=== PATIENT | male | born 1970 | race Two or more races ===

== ENCOUNTER → 2020-05-30 | Outpatient (CLI) | payer BC ==
[2020-05-30 06:50] LABS: BASOPHILS % 0.9 % (0.0-2.0); EOSINOPHILS % 2.7 % (0.0-5.0); HEMATOCRIT. 44.4 % (42.0-52.0); HEMOGLOBIN. 15.5 g/dL (14.0-18.0); LYMPHOCYTES % 37.2 % (20.0-50.0); MEAN CORPUSCULAR HEMOGLOBIN 32.3 pg (28.0-32.0); MEAN CORPUSCULAR VOLUME 92.4 fL (80.0-94.0); MEAN PLATELET VOLUME 10.1 fl (7.4-10.4); MONOCYTES % 6.8 % (2.0-8.0); NEUTROPHILS % 52.4 % (40.0-76.0); PLATELET 182 x1000/uL (130-400); RED BLOOD CELL COUNT 4.81 mill/uL (4.7-6.1); RED CELL DISTRIBUTION WIDTH 14.1 % (11.6-14.6)
[2020-05-30 07:07] LABS: CHLORIDE 105 mEq/L (98-107)
== END | disposition home or self-care (01) ==
LOC: LAB 06:08
PROVIDERS: ATTEND Internal Medicine
DX: I10 Essential (primary) hypertension (principal)
CPT/HCPCS: 36415; 80053; 83036; 84153; 85025; G0103

== ENCOUNTER → 2020-09-01 | Outpatient (CLI) | payer BC | END | disposition home or self-care (01) | LOC: MRI 07:23 | PROVIDERS: ATTEND Internal Medicine | DX: M51.27 Other intervertebral disc displacement, lumbosacral region (principal); M48.07 Spinal stenosis, lumbosacral region | CPT/HCPCS: 72148 ==

== ENCOUNTER 2022-02-07 13:05 | Inpatient (IN) | payer BC ==
[~2022-02-07] VITALS: Ht 175.3 cm; Wt 83.9 kg
[2022-02-07] MEDS ORDERED: IOHEXOL-350 100 ML BOTTLE ONE (13:48)
[2022-02-07 14:15] LABS: CLARITY URINE CLEAR (CLEAR); COLOR URINE YELLOW (YELLOW); KETONES URINE NEGATIVE (NEGATIVE); LEUKOCYTE ESTERASE URINE NEGATIVE (NEGATIVE); NITRITE URINE NEGATIVE (NEGATIVE); OCCULT BLOOD URINE NEGATIVE (NEGATIVE); PROTEIN URINE NEGATIVE (NEGATIVE); SPECIFIC GRAVITY URINE 1.039 (1.005-1.030); UROBILINOGEN URINE 0.2 E.U./dL (0.2-1.0)
[2022-02-07 14:21] LABS: BASOPHILS % 0.3 % (0.0-2.0); EOSINOPHILS % 0.5 % (0.0-5.0); HEMATOCRIT. 27.6 % (42.0-52.0); HEMOGLOBIN. 9.7 g/dL (14.0-18.0); LYMPHOCYTES % 16.2 % (20.0-50.0); MEAN CORPUSCULAR HEMOGLOBIN 31.9 pg (28.0-32.0); MEAN PLATELET VOLUME 9.8 fl (7.4-10.4); MONOCYTES % 5.5 % (2.0-8.0); NEUTROPHILS % 77.5 % (40.0-76.0); PLATELET 117 x1000/uL (130-400); RED BLOOD CELL COUNT 3.03 mill/uL (4.7-6.1); RED CELL DISTRIBUTION WIDTH 14.3 % (11.6-14.6)
[2022-02-07 14:26] LABS: CHLORIDE 101 mEq/L (98-107)
[2022-02-07] MEDS ORDERED: CLOPIDOGREL 75MG TABLET PO ONE (14:30)
[2022-02-07] MEDS ORDERED: ASPIRIN 325MG EC TABLET PO ONE (14:30)
[2022-02-07 14:37] LABS: ETHANOL BLOOD 116 mg/dL
[2022-02-07 14:39] LABS: *AMPHETAMINES SCREEN URINE NEGATIVE (NEGATIVE); *BARBITURATES SCREEN URINE NEGATIVE (NEGATIVE); *BENZODIAZEPINES SCREEN URINE NEGATIVE (NEGATIVE); *COCAINE SCREEN URINE NEGATIVE (NEGATIVE); CANNABINOID URINE SCREEN NEGATIVE (NEGATIVE); METHADONE URINE SCREEN NEGATIVE (NEGATIVE); OPIATES URINE SCREEN NEGATIVE (NEGATIVE); PHENCYCLIDINE URINE SCREEN NEGATIVE (NEGATIVE)
[2022-02-07] MEDS ORDERED: DEXTROSE 50% WATER 50ML SYRINGE IV PRN (16:45)
[2022-02-07] MEDS ORDERED: ONDANSETRON HCL 4MG/2ML INJ IV PRN (16:45)
[2022-02-07 19:07] VITALS: BP 151/90
[2022-02-07 20:00] VITALS: BP 158/91
[2022-02-07] MEDS: ATORVASTATIN CALCIUM 40MG TABLET PO SCH (20:11)
[2022-02-07] MEDS: ACETAMINOPHEN 325MG TABLET PO PRN (20:17)
[2022-02-07] MEDS: BLOOD SUGAR DIAGNOSTIC STRIP TEST SCH (20:20)
[2022-02-07] MEDS: INSULIN LISPRO 100 UNITS/ML SUBCUT SCH (20:20)
[2022-02-08] VITALS: BP 145/82
[2022-02-08 04:00] VITALS: BP 148/96
[2022-02-08] MEDS: BLOOD SUGAR DIAGNOSTIC STRIP TEST SCH ×4 (06:09→21:14)
[2022-02-08] MEDS: INSULIN LISPRO 100 UNITS/ML SUBCUT SCH ×4 (06:10→21:18)
[2022-02-08 08:30] VITALS: BP 152/99
[2022-02-08] MEDS: FOLIC ACID 1MG TABLET PO SCH (08:59)
[2022-02-08] MEDS: MULTIVITAMINS,THER W-MINERALS TABLET PO SCH (08:59)
[2022-02-08] MEDS: ASPIRIN 81MG TABLET PO SCH (08:59)
[2022-02-08] MEDS: ACETAMINOPHEN 325MG TABLET PO PRN ×3 (08:59→22:39)
[2022-02-08] MEDS: THIAMINE HCL 100MG TABLET PO SCH (08:59)
[2022-02-08] MEDS: ENOXAPARIN 40MG/0.4ML SYR SUBCUT SCH (09:00)
[2022-02-08 12:30] VITALS: BP 174/92
[2022-02-08 16:26] VITALS: BP 146/92
[2022-02-08] MEDS: CLOPIDOGREL 75MG TABLET PO SCH (17:34)
[2022-02-08 20:00] VITALS: BP 149/87
[2022-02-08] MEDS: ATORVASTATIN CALCIUM 40MG TABLET PO SCH (21:14)
[2022-02-09] VITALS: BP 137/71
[2022-02-09 04:00] VITALS: BP 122/77
[2022-02-09] MEDS: BLOOD SUGAR DIAGNOSTIC STRIP TEST SCH ×4 (05:34→20:00)
[2022-02-09] MEDS: ACETAMINOPHEN 325MG TABLET PO PRN ×2 (05:35→19:46)
[2022-02-09] MEDS: INSULIN LISPRO 100 UNITS/ML SUBCUT SCH ×4 (06:34→20:01)
[2022-02-09 08:00] VITALS: BP 116/60
[2022-02-09] MEDS: ASPIRIN 81MG TABLET PO SCH (08:38)
[2022-02-09] MEDS: CLOPIDOGREL 75MG TABLET PO SCH (08:38)
[2022-02-09] MEDS: THIAMINE HCL 100MG TABLET PO SCH (08:38)
[2022-02-09] MEDS: ENOXAPARIN 40MG/0.4ML SYR SUBCUT SCH (08:38)
[2022-02-09] MEDS: MULTIVITAMINS,THER W-MINERALS TABLET PO SCH (08:38)
[2022-02-09] MEDS: FOLIC ACID 1MG TABLET PO SCH (08:38)
[2022-02-09] MEDS ORDERED: IBUPROFEN 100MG/5ML UDC PO PRN (09:00)
[2022-02-09] MEDS ORDERED: NICOTINE 14MG PATCH TD SCH (09:00)
[2022-02-09 12:00] VITALS: BP 118/93
[2022-02-09 16:00] VITALS: BP 140/81
[2022-02-09 20:00] VITALS: BP 132/78
[2022-02-09] MEDS: ATORVASTATIN CALCIUM 40MG TABLET PO SCH (20:00)
== END 2022-02-09 21:35 | DRG 65 ==
LOC: ER 13:41 → 8WST 14:30 → ENRESERV 15:39
PROVIDERS: ADMIT Internal Medicine Nephrology; ATTEND Internal Medicine
PROC: 4A10X4Z Monitoring of Central Nervous Electrical Activity, External Approach (ICD-10-PCS; principal; 2022-02-09)
DX: I63.9 Cerebral infarction, unspecified (principal); E87.1 Hypo-osmolality and hyponatremia; G81.94 Hemiplegia, unspecified affecting left nondominant side; I10 Essential (primary) hypertension; D64.9 Anemia, unspecified; E11.65 Type 2 diabetes mellitus with hyperglycemia; F10.129 Alcohol abuse with intoxication, unspecified; R29.810 Facial weakness; Y90.9 Presence of alcohol in blood, level not specified; F17.210 Nicotine dependence, cigarettes, uncomplicated; E78.00 Pure hypercholesterolemia, unspecified; Z86.73 Personal history of transient ischemic attack (TIA), and cerebral infarction without residual deficits
CPT/HCPCS: 36415; 70496; 70498; 70551; 71045; 80053; 80061; 80305; 80320; 81003; 82962; 83036; 84484; 85025; 93005; 93306; 95816; 97112; 97162; 97166; 99291; J1650; J1815; Q9967; G0480

== ENCOUNTER 2022-02-09 21:33 | Inpatient (IN) | payer BC ==
[~2022-02-09] VITALS: Ht 175.3 cm; Wt 83.7 kg
[2022-02-09 21:33] VITALS: BP 141/85
[2022-02-09] MEDS ORDERED: ONDANSETRON HCL 4MG/2ML INJ IV PRN (23:00)
[2022-02-09] MEDS ORDERED: DEXTROSE 50% WATER 50ML SYRINGE IV PRN (23:00)
[2022-02-10] MEDS: BLOOD SUGAR DIAGNOSTIC STRIP TEST SCH ×4 (05:50→20:43)
[2022-02-10 08:00] VITALS: BP 124/89
[2022-02-10] MEDS: NICOTINE 14MG PATCH TD SCH ×2 (09:00→12:36)
[2022-02-10] MEDS: CLOPIDOGREL 75MG TABLET PO SCH (09:33)
[2022-02-10] MEDS: ASPIRIN 81MG TABLET PO SCH (09:33)
[2022-02-10] MEDS: FOLIC ACID 1MG TABLET PO SCH (09:33)
[2022-02-10] MEDS: THIAMINE HCL 100MG TABLET PO SCH (09:33)
[2022-02-10] MEDS: MULTIVITAMINS,THER W-MINERALS TABLET PO SCH (09:33)
[2022-02-10] MEDS: ENOXAPARIN 40MG/0.4ML SYR SUBCUT SCH (09:37)
[2022-02-10] MEDS: INSULIN LISPRO 100 UNITS/ML SUBCUT SCH ×4 (09:44→20:50)
[2022-02-10] MEDS: ACETAMINOPHEN 325MG TABLET PO PRN (14:53)
[2022-02-10 20:00] VITALS: BP 148/67
[2022-02-10] MEDS: ATORVASTATIN CALCIUM 40MG TABLET PO SCH (20:40)
[2022-02-11] MEDS: BLOOD SUGAR DIAGNOSTIC STRIP TEST SCH ×4 (06:46→21:09)
[2022-02-11] MEDS: INSULIN LISPRO 100 UNITS/ML SUBCUT SCH ×4 (06:59→21:17)
[2022-02-11 08:00] VITALS: BP 126/88
[2022-02-11] MEDS: ENOXAPARIN 40MG/0.4ML SYR SUBCUT SCH (09:00)
[2022-02-11] MEDS: FOLIC ACID 1MG TABLET PO SCH (09:15)
[2022-02-11] MEDS: ASPIRIN 81MG TABLET PO SCH (09:15)
[2022-02-11] MEDS: CLOPIDOGREL 75MG TABLET PO SCH (09:15)
[2022-02-11] MEDS: MULTIVITAMINS,THER W-MINERALS TABLET PO SCH (09:16)
[2022-02-11] MEDS: NICOTINE 14MG PATCH TD SCH (09:16)
[2022-02-11] MEDS: THIAMINE HCL 100MG TABLET PO SCH (09:16)
[2022-02-11] MEDS: ACETAMINOPHEN 325MG TABLET PO PRN ×2 (12:39→14:52)
[2022-02-11] MEDS: LACTULOSE 20G/30ML UDC PO SCH ×3 (14:00→20:32)
[2022-02-11 20:00] VITALS: BP 142/88
[2022-02-11] MEDS: ATORVASTATIN CALCIUM 40MG TABLET PO SCH (20:32)
[2022-02-11] MEDS: IBUPROFEN 100MG/5ML UDC PO PRN (20:51)
[2022-02-12] MEDS: BLOOD SUGAR DIAGNOSTIC STRIP TEST SCH ×4 (06:06→20:35)
[2022-02-12] MEDS: INSULIN LISPRO 100 UNITS/ML SUBCUT SCH ×4 (08:02→20:36)
[2022-02-12 08:20] VITALS: BP 113/81
[2022-02-12] MEDS: CLOPIDOGREL 75MG TABLET PO SCH (08:38)
[2022-02-12] MEDS: MULTIVITAMINS,THER W-MINERALS TABLET PO SCH (08:38)
[2022-02-12] MEDS: THIAMINE HCL 100MG TABLET PO SCH (08:38)
[2022-02-12] MEDS: ASPIRIN 81MG TABLET PO SCH (08:38)
[2022-02-12] MEDS: NICOTINE 14MG PATCH TD SCH (08:39)
[2022-02-12] MEDS: FOLIC ACID 1MG TABLET PO SCH (08:39)
[2022-02-12] MEDS: ENOXAPARIN 40MG/0.4ML SYR SUBCUT SCH (08:44)
[2022-02-12] MEDS: ACETAMINOPHEN 325MG TABLET PO PRN ×2 (11:17→20:27)
[2022-02-12] MEDS: METFORMIN HCL 500MG TABLET PO SCH (17:44)
[2022-02-12 20:00] VITALS: BP 136/81
[2022-02-12] MEDS: ATORVASTATIN CALCIUM 40MG TABLET PO SCH (20:35)
[2022-02-13] MEDS: BLOOD SUGAR DIAGNOSTIC STRIP TEST SCH ×4 (05:27→21:41)
[2022-02-13] MEDS: INSULIN LISPRO 100 UNITS/ML SUBCUT SCH ×4 (06:06→21:46)
[2022-02-13 06:17] LABS: CHLORIDE 106 mEq/L (98-107)
[2022-02-13 06:34] LABS: HEMATOCRIT 43.7 % (42.0-52.0); HEMOGLOBIN 15.1 g/dL (14.0-18.0); MEAN CORPUSCULAR HEMOGLOBIN 31.8 pg (28.0-32.0); MEAN CORPUSCULAR VOLUME 92.2 fL (80.0-94.0); PLATELET 184 x1000/uL (130-400); RED BLOOD CELL COUNT 4.74 mill/uL (4.7-6.1); RED CELL DISTRIBUTION WIDTH 14.6 % (11.6-14.6)
[2022-02-13 07:53] VITALS: BP 127/69
[2022-02-13] MEDS: METFORMIN HCL 500MG TABLET PO SCH ×2 (08:47→17:14)
[2022-02-13] MEDS: MULTIVITAMINS,THER W-MINERALS TABLET PO SCH (08:47)
[2022-02-13] MEDS: NICOTINE 14MG PATCH TD SCH (08:47)
[2022-02-13] MEDS: THIAMINE HCL 100MG TABLET PO SCH (08:47)
[2022-02-13] MEDS: ASPIRIN 81MG TABLET PO SCH (08:47)
[2022-02-13] MEDS: CLOPIDOGREL 75MG TABLET PO SCH (08:47)
[2022-02-13] MEDS: ENOXAPARIN 40MG/0.4ML SYR SUBCUT SCH (08:47)
[2022-02-13] MEDS: FOLIC ACID 1MG TABLET PO SCH (08:47)
[2022-02-13 20:00] VITALS: BP 130/74
[2022-02-13] MEDS: ATORVASTATIN CALCIUM 40MG TABLET PO SCH (21:41)
[2022-02-13] MEDS: ACETAMINOPHEN 325MG TABLET PO PRN (21:42)
[2022-02-14] MEDS: BLOOD SUGAR DIAGNOSTIC STRIP TEST SCH ×4 (06:52→20:17)
[2022-02-14] MEDS: INSULIN LISPRO 100 UNITS/ML SUBCUT SCH ×4 (06:53→20:20)
[2022-02-14 08:00] VITALS: BP 106/52
[2022-02-14] MEDS: FOLIC ACID 1MG TABLET PO SCH (08:28)
[2022-02-14] MEDS: ASPIRIN 81MG TABLET PO SCH (08:28)
[2022-02-14] MEDS: METFORMIN HCL 500MG TABLET PO SCH ×2 (08:28→18:27)
[2022-02-14] MEDS: CLOPIDOGREL 75MG TABLET PO SCH (08:28)
[2022-02-14] MEDS: THIAMINE HCL 100MG TABLET PO SCH (08:28)
[2022-02-14] MEDS: MULTIVITAMINS,THER W-MINERALS TABLET PO SCH (08:28)
[2022-02-14] MEDS: NICOTINE 14MG PATCH TD SCH (08:29)
[2022-02-14] MEDS: ENOXAPARIN 40MG/0.4ML SYR SUBCUT SCH (08:29)
[2022-02-14 20:00] VITALS: BP 150/92
[2022-02-14] MEDS: ACETAMINOPHEN 325MG TABLET PO PRN (20:38)
[2022-02-14] MEDS: ATORVASTATIN CALCIUM 40MG TABLET PO SCH (20:39)
[2022-02-15] MEDS: BLOOD SUGAR DIAGNOSTIC STRIP TEST SCH ×4 (05:03→20:48)
[2022-02-15 07:59] VITALS: BP 118/84
[2022-02-15 08:01] VITALS: BP 118/84
[2022-02-15] MEDS: INSULIN LISPRO 100 UNITS/ML SUBCUT SCH ×4 (09:00→20:56)
[2022-02-15] MEDS: ASPIRIN 81MG TABLET PO SCH (09:37)
[2022-02-15] MEDS: CLOPIDOGREL 75MG TABLET PO SCH (09:37)
[2022-02-15] MEDS: MULTIVITAMINS,THER W-MINERALS TABLET PO SCH (09:37)
[2022-02-15] MEDS: FOLIC ACID 1MG TABLET PO SCH (09:37)
[2022-02-15] MEDS: THIAMINE HCL 100MG TABLET PO SCH (09:37)
[2022-02-15] MEDS: METFORMIN HCL 500MG TABLET PO SCH ×2 (09:38→17:33)
[2022-02-15] MEDS: ENOXAPARIN 40MG/0.4ML SYR SUBCUT SCH (09:38)
[2022-02-15] MEDS: NICOTINE 14MG PATCH TD SCH (14:41)
[2022-02-15] MEDS: ACETAMINOPHEN 325MG TABLET PO PRN ×2 (14:42→21:33)
[2022-02-15 20:00] VITALS: BP 136/73
[2022-02-15] MEDS: ATORVASTATIN CALCIUM 40MG TABLET PO SCH (20:48)
[2022-02-16] MEDS: INSULIN LISPRO 100 UNITS/ML SUBCUT SCH ×4 (05:43→20:17)
[2022-02-16] MEDS: BLOOD SUGAR DIAGNOSTIC STRIP TEST SCH ×4 (05:43→20:17)
[2022-02-16 07:57] VITALS: BP 113/68
[2022-02-16] MEDS: MULTIVITAMINS,THER W-MINERALS TABLET PO SCH (09:00)
[2022-02-16] MEDS: IBUPROFEN 100MG/5ML UDC PO PRN (09:27)
[2022-02-16] MEDS: ASPIRIN 81MG TABLET PO SCH (09:27)
[2022-02-16] MEDS: THIAMINE HCL 100MG TABLET PO SCH (09:28)
[2022-02-16] MEDS: ENOXAPARIN 40MG/0.4ML SYR SUBCUT SCH (09:28)
[2022-02-16] MEDS: FOLIC ACID 1MG TABLET PO SCH (09:28)
[2022-02-16] MEDS: METFORMIN HCL 500MG TABLET PO SCH (09:28)
[2022-02-16] MEDS: CLOPIDOGREL 75MG TABLET PO SCH (09:28)
[2022-02-16] MEDS: NICOTINE 14MG PATCH TD SCH (09:28)
[2022-02-16 16:41] LABS: CLARITY URINE CLEAR (CLEAR); COLOR URINE YELLOW (YELLOW); KETONES URINE NEGATIVE (NEGATIVE); LEUKOCYTE ESTERASE URINE NEGATIVE (NEGATIVE); NITRITE URINE NEGATIVE (NEGATIVE); OCCULT BLOOD URINE NEGATIVE (NEGATIVE); PH URINE 6.5 (4.5-8.0); PROTEIN URINE NEGATIVE (NEGATIVE); SPECIFIC GRAVITY URINE 1.012 (1.005-1.030)
[2022-02-16] MEDS: METFORMIN HCL 850MG TABLET PO SCH (17:17)
[2022-02-16] MEDS: ATORVASTATIN CALCIUM 40MG TABLET PO SCH (20:16)
[2022-02-16 20:27] VITALS: BP 151/88
[2022-02-17] MEDS: BLOOD SUGAR DIAGNOSTIC STRIP TEST SCH ×4 (05:38→20:05)
[2022-02-17] MEDS: INSULIN LISPRO 100 UNITS/ML SUBCUT SCH ×4 (05:38→20:35)
[2022-02-17 07:43] VITALS: BP 106/63
[2022-02-17] MEDS: ASPIRIN 81MG TABLET PO SCH (08:32)
[2022-02-17] MEDS: NICOTINE 14MG PATCH TD SCH (08:32)
[2022-02-17] MEDS: MULTIVITAMINS,THER W-MINERALS TABLET PO SCH (08:32)
[2022-02-17] MEDS: CLOPIDOGREL 75MG TABLET PO SCH (08:32)
[2022-02-17] MEDS: FOLIC ACID 1MG TABLET PO SCH (08:33)
[2022-02-17] MEDS: METFORMIN HCL 850MG TABLET PO SCH ×2 (08:33→17:42)
[2022-02-17] MEDS: THIAMINE HCL 100MG TABLET PO SCH (08:33)
[2022-02-17] MEDS: ENOXAPARIN 40MG/0.4ML SYR SUBCUT SCH (08:33)
[2022-02-17 20:00] VITALS: BP 118/71
[2022-02-17] MEDS: ATORVASTATIN CALCIUM 40MG TABLET PO SCH (20:04)
[2022-02-18] MEDS: ACETAMINOPHEN 325MG TABLET PO PRN (00:10)
[2022-02-18] MEDS: BLOOD SUGAR DIAGNOSTIC STRIP TEST SCH ×4 (05:54→20:39)
[2022-02-18] MEDS: INSULIN LISPRO 100 UNITS/ML SUBCUT SCH ×4 (05:56→20:39)
[2022-02-18 08:00] VITALS: BP 127/83
[2022-02-18] MEDS: CLOPIDOGREL 75MG TABLET PO SCH (09:40)
[2022-02-18] MEDS: ENOXAPARIN 40MG/0.4ML SYR SUBCUT SCH (09:40)
[2022-02-18] MEDS: THIAMINE HCL 100MG TABLET PO SCH (09:40)
[2022-02-18] MEDS: FOLIC ACID 1MG TABLET PO SCH (09:40)
[2022-02-18] MEDS: METFORMIN HCL 850MG TABLET PO SCH ×2 (09:40→16:54)
[2022-02-18] MEDS: ASPIRIN 81MG TABLET PO SCH (09:40)
[2022-02-18] MEDS: NICOTINE 14MG PATCH TD SCH (09:40)
[2022-02-18] MEDS: MULTIVITAMINS,THER W-MINERALS TABLET PO SCH (09:40)
[2022-02-18 20:00] VITALS: BP 151/97
[2022-02-18] MEDS: ATORVASTATIN CALCIUM 40MG TABLET PO SCH (20:32)
[2022-02-19 05:49] LABS: HEMATOCRIT 42.5 % (42.0-52.0); HEMOGLOBIN 14.6 g/dL (14.0-18.0); MEAN CORPUSCULAR HEMOGLOBIN 31.3 pg (28.0-32.0); MEAN CORPUSCULAR VOLUME 90.7 fL (80.0-94.0); PLATELET 204 x1000/uL (130-400); RED BLOOD CELL COUNT 4.68 mill/uL (4.7-6.1); RED CELL DISTRIBUTION WIDTH 13.7 % (11.6-14.6)
[2022-02-19] MEDS: BLOOD SUGAR DIAGNOSTIC STRIP TEST SCH ×4 (06:19→21:21)
[2022-02-19] MEDS: INSULIN LISPRO 100 UNITS/ML SUBCUT SCH ×4 (06:39→21:00)
[2022-02-19 07:41] LABS: CHLORIDE 107 mEq/L (98-107)
[2022-02-19 08:00] VITALS: BP 151/97
[2022-02-19] MEDS: NICOTINE 14MG PATCH TD SCH (10:14)
[2022-02-19] MEDS: ENOXAPARIN 40MG/0.4ML SYR SUBCUT SCH (10:15)
[2022-02-19] MEDS: FOLIC ACID 1MG TABLET PO SCH (10:15)
[2022-02-19] MEDS: CLOPIDOGREL 75MG TABLET PO SCH (10:15)
[2022-02-19] MEDS: MULTIVITAMINS,THER W-MINERALS TABLET PO SCH (10:15)
[2022-02-19] MEDS: THIAMINE HCL 100MG TABLET PO SCH (10:15)
[2022-02-19] MEDS: METFORMIN HCL 850MG TABLET PO SCH ×2 (10:15→17:48)
[2022-02-19] MEDS: ASPIRIN 81MG TABLET PO SCH (10:16)
[2022-02-19 20:00] VITALS: BP 107/71
[2022-02-19] MEDS: ATORVASTATIN CALCIUM 40MG TABLET PO SCH (21:22)
[2022-02-20] MEDS: BLOOD SUGAR DIAGNOSTIC STRIP TEST SCH ×4 (06:30→20:51)
[2022-02-20] MEDS: INSULIN LISPRO 100 UNITS/ML SUBCUT SCH ×4 (07:47→20:52)
[2022-02-20 08:00] VITALS: BP 109/57
[2022-02-20] MEDS: CLOPIDOGREL 75MG TABLET PO SCH (08:40)
[2022-02-20] MEDS: NICOTINE 14MG PATCH TD SCH (08:40)
[2022-02-20] MEDS: ENOXAPARIN 40MG/0.4ML SYR SUBCUT SCH (08:40)
[2022-02-20] MEDS: THIAMINE HCL 100MG TABLET PO SCH (08:40)
[2022-02-20] MEDS: METFORMIN HCL 850MG TABLET PO SCH ×2 (08:40→17:02)
[2022-02-20] MEDS: MULTIVITAMINS,THER W-MINERALS TABLET PO SCH (08:40)
[2022-02-20] MEDS: ASPIRIN 81MG TABLET PO SCH (08:40)
[2022-02-20] MEDS: FOLIC ACID 1MG TABLET PO SCH (08:40)
[2022-02-20] MEDS: ACETAMINOPHEN 325MG TABLET PO PRN ×2 (08:46→09:57)
[2022-02-20 20:00] VITALS: BP 124/80
[2022-02-20] MEDS: ATORVASTATIN CALCIUM 40MG TABLET PO SCH (20:53)
[2022-02-21] MEDS: INSULIN LISPRO 100 UNITS/ML SUBCUT SCH ×4 (06:00→20:42)
[2022-02-21] MEDS: BLOOD SUGAR DIAGNOSTIC STRIP TEST SCH ×4 (07:06→20:42)
[2022-02-21 08:00] VITALS: BP 111/72
[2022-02-21] MEDS: NICOTINE 14MG PATCH TD SCH (08:57)
[2022-02-21] MEDS: ASPIRIN 81MG TABLET PO SCH (08:58)
[2022-02-21] MEDS: METFORMIN HCL 850MG TABLET PO SCH ×2 (08:58→17:16)
[2022-02-21] MEDS: CLOPIDOGREL 75MG TABLET PO SCH (08:58)
[2022-02-21] MEDS: THIAMINE HCL 100MG TABLET PO SCH (08:58)
[2022-02-21] MEDS: ENOXAPARIN 40MG/0.4ML SYR SUBCUT SCH (08:58)
[2022-02-21] MEDS: FOLIC ACID 1MG TABLET PO SCH (08:58)
[2022-02-21] MEDS: MULTIVITAMINS,THER W-MINERALS TABLET PO SCH (08:58)
[2022-02-21 20:00] VITALS: BP_SYST 128; BP_DIAS 68; BP_DIAS 82
[2022-02-21] MEDS: ATORVASTATIN CALCIUM 40MG TABLET PO SCH (20:43)
[2022-02-22] MEDS: BLOOD SUGAR DIAGNOSTIC STRIP TEST SCH ×4 (06:21→20:15)
[2022-02-22 08:00] VITALS: BP 117/79
[2022-02-22] MEDS: INSULIN LISPRO 100 UNITS/ML SUBCUT SCH ×4 (09:00→20:15)
[2022-02-22] MEDS: ASPIRIN 81MG TABLET PO SCH (09:22)
[2022-02-22] MEDS: NICOTINE 14MG PATCH TD SCH (09:22)
[2022-02-22] MEDS: METFORMIN HCL 850MG TABLET PO SCH ×2 (09:22→17:34)
[2022-02-22] MEDS: CLOPIDOGREL 75MG TABLET PO SCH (09:22)
[2022-02-22] MEDS: MULTIVITAMINS,THER W-MINERALS TABLET PO SCH (09:22)
[2022-02-22] MEDS: THIAMINE HCL 100MG TABLET PO SCH (09:22)
[2022-02-22] MEDS: FOLIC ACID 1MG TABLET PO SCH (09:23)
[2022-02-22 20:00] VITALS: BP 127/83
[2022-02-22] MEDS: ATORVASTATIN CALCIUM 40MG TABLET PO SCH (20:15)
[2022-02-23] MEDS: BLOOD SUGAR DIAGNOSTIC STRIP TEST SCH ×4 (05:55→20:55)
[2022-02-23 08:54] VITALS: BP 120/62
[2022-02-23] MEDS: INSULIN LISPRO 100 UNITS/ML SUBCUT SCH ×4 (09:00→20:55)
[2022-02-23] MEDS: MULTIVITAMINS,THER W-MINERALS TABLET PO SCH (09:11)
[2022-02-23] MEDS: ASPIRIN 81MG TABLET PO SCH (09:11)
[2022-02-23] MEDS: METFORMIN HCL 850MG TABLET PO SCH ×2 (09:11→17:24)
[2022-02-23] MEDS: FOLIC ACID 1MG TABLET PO SCH (09:11)
[2022-02-23] MEDS: THIAMINE HCL 100MG TABLET PO SCH (09:11)
[2022-02-23] MEDS: CLOPIDOGREL 75MG TABLET PO SCH (09:11)
[2022-02-23] MEDS: NICOTINE 14MG PATCH TD SCH (09:11)
[2022-02-23 20:00] VITALS: BP 124/79
[2022-02-23] MEDS: ATORVASTATIN CALCIUM 40MG TABLET PO SCH (20:37)
[2022-02-24] MEDS: BLOOD SUGAR DIAGNOSTIC STRIP TEST SCH ×2 (06:53→11:15)
[2022-02-24 08:00] VITALS: BP 112/75
[2022-02-24] MEDS: INSULIN LISPRO 100 UNITS/ML SUBCUT SCH ×2 (09:00→13:08)
[2022-02-24] MEDS: METFORMIN HCL 850MG TABLET PO SCH (09:54)
[2022-02-24] MEDS: NICOTINE 14MG PATCH TD SCH (09:54)
[2022-02-24] MEDS: CLOPIDOGREL 75MG TABLET PO SCH (09:54)
[2022-02-24] MEDS: THIAMINE HCL 100MG TABLET PO SCH (09:54)
[2022-02-24] MEDS: FOLIC ACID 1MG TABLET PO SCH (09:55)
[2022-02-24] MEDS: ASPIRIN 81MG TABLET PO SCH (09:55)
[2022-02-24] MEDS: MULTIVITAMINS,THER W-MINERALS TABLET PO SCH (09:55)
[2022-02-24 12:08] VITALS: BP 112/74
== END 2022-02-24 13:18 | disposition home health service (06) | DRG 65 ==
PROVIDERS: ADMIT Psychiatry & Neurology Neurology; ATTEND Internal Medicine
DX: I63.89 Other cerebral infarction (principal); I69.354 Hemiplegia and hemiparesis following cerebral infarction affecting left non-dominant side; I10 Essential (primary) hypertension; E78.5 Hyperlipidemia, unspecified; D64.9 Anemia, unspecified; E11.9 Type 2 diabetes mellitus without complications; E78.00 Pure hypercholesterolemia, unspecified; F01.50 Vascular dementia, unspecified severity, without behavioral disturbance, psychotic disturbance, mood disturbance, and anxiety; R29.810 Facial weakness; F17.210 Nicotine dependence, cigarettes, uncomplicated
CPT/HCPCS: 36415; 80048; 81003; 82962; 85027; 92523; 92610; 93970; 97110; 97112; 97116; 97163; 97166; 97530; 97535; 97542; 97760; J1650; J1815

== ENCOUNTER 2023-08-19 06:56 | Inpatient (IN) | payer BC ==
[~2023-08-19] VITALS: Ht 175.3 cm; Wt 79.4 kg
[2023-08-19 08:13] LABS: ALANINE AMINOTRANSFERASE 19 IU/L (10-49); ALBUMIN 4.6 g/dL (3.2-4.8); ASPARTATE AMINOTRANSFERASE 20 IU/L (<34); BILIRUBIN TOTAL 0.3 mg/dL (0.1-1.0); CALCIUM 9.6 mg/dL (8.7-10.4); CARBON DIOXIDE 30 mEq/L (21-32); CHLORIDE 105 mEq/L (98-107); CREATININE 0.9 mg/dL (0.6-1.3); GLUCOSE 145 mg/dL (70-105); POTASSIUM 3.6 mEq/L (3.5-5.1); PROTEIN TOTAL 8.1 g/dL (6.0-8.3); SODIUM 144 mEq/L (136-145); UREA NITROGEN BLOOD 6 mg/dL (9-23)
[2023-08-19 08:36] LABS: TROPONIN I HIGH SENSITIVITY 216 ng/L (3.0-53)
[2023-08-19 09:03] LABS: INR 0.9; PROTHROMBIN TIME 10.2 sec (9.6-11.0)
[2023-08-19 09:15] LABS: BASOPHILS % 0.9 % (0.0-2.0); EOSINOPHILS % 1.9 % (0.0-5.0); HEMATOCRIT. 47.4 % (42.0-52.0); HEMOGLOBIN. 15.8 g/dL (14.0-18.0); LYMPHOCYTES % 38.2 % (20.0-50.0); MEAN CORPUSCULAR HEMOGLOBIN 31.5 pg (28.0-32.0); MEAN CORPUSCULAR HGB CONC 33.4 g/dL (31.0-37.0); MEAN CORPUSCULAR VOLUME 94.5 fL (80.0-94.0); MEAN PLATELET VOLUME 10.4 fl (7.4-10.4); MONOCYTES % 5.8 % (2.0-8.0); NEUTROPHILS % 53.2 % (40.0-76.0); PLATELET 217 x1000/uL (130-400); RED BLOOD CELL COUNT 5.02 mill/uL (4.7-6.1); RED CELL DISTRIBUTION WIDTH 13.7 % (11.6-14.6); WHITE BLOOD COUNT 7.1 x1000/uL (4.5-11.0)
[2023-08-19] MEDS ORDERED: ASPIRIN 325MG EC TABLET PO ONE (09:30)
[2023-08-19] MEDS ORDERED: ENOXAPARIN 80MG/0.8ML SYR SUBCUT ONE (09:30)
[2023-08-19 10:04] LABS: CLARITY URINE CLEAR (CLEAR); COLOR URINE YELLOW (YELLOW); GLUCOSE URINE NEGATIVE (NEGATIVE); KETONES URINE TRACE (NEGATIVE); LEUKOCYTE ESTERASE URINE NEGATIVE (NEGATIVE); NITRITE URINE NEGATIVE (NEGATIVE); OCCULT BLOOD URINE NEGATIVE (NEGATIVE); PROTEIN URINE NEGATIVE (NEGATIVE); SPECIFIC GRAVITY URINE 1.024 (1.005-1.030); UROBILINOGEN URINE 0.2 E.U./dL (0.2-1.0)
[2023-08-19 17:27] VITALS: BP 148/99; PULSE 65; RESP 20; TEMP 98.7
[2023-08-19 17:52] VITALS: BP 148/99; PULSE 65; RESP 20; TEMP 98.7
[2023-08-19] MEDS ORDERED: CLONIDINE 0.1MG TABLET PO PRN (18:15)
[2023-08-19] MEDS ORDERED: ACETAMINOPHEN 325MG TABLET PO PRN ×3 (18:15→19:00)
[2023-08-19] MEDS ORDERED: DEXTROSE 50% WATER 50ML SYRINGE IV PRN (19:00)
[2023-08-19] MEDS ORDERED: ZOLPIDEM TARTRATE 5MG TABLET PO PRN ×2 (19:00)
[2023-08-19] MEDS ORDERED: MAGNESIUM/ALUMINUM HYDROXIDE/SIMETHICONE 30ML UDC PO PRN (19:00)
[2023-08-19] MEDS ORDERED: DIPHENHYDRAMINE 50MG/ML VIAL IV PRN (19:00)
[2023-08-19] MEDS ORDERED: ONDANSETRON HCL 4MG/2ML INJ IV PRN (19:00)
[2023-08-19 20:00] VITALS: BP 137/77; PULSE 62; RESP 20; TEMP 99.7
[2023-08-19] MEDS: FAMOTIDINE 20MG TABLET PO SCH (20:40)
[2023-08-19] MEDS: INSULIN LISPRO 100 UNITS/ML SUBCUT SCH (20:40)
[2023-08-19] MEDS: BLOOD SUGAR DIAGNOSTIC STRIP TEST SCH (20:41)
[2023-08-19] MEDS: SODIUM CHLORIDE 0.9% INJ 3ML FLUSH IVF SCH (22:00)
[2023-08-20 00:29] VITALS: BP 156/93; PULSE 70; RESP 18; TEMP 98.1
[2023-08-20 04:00] VITALS: BP 136/79; PULSE 70; RESP 18; TEMP 99
[2023-08-20] MEDS: SODIUM CHLORIDE 0.9% INJ 3ML FLUSH IVF SCH ×3 (05:25→22:00)
[2023-08-20] MEDS: BLOOD SUGAR DIAGNOSTIC STRIP TEST SCH ×4 (06:43→21:00)
[2023-08-20] MEDS: INSULIN LISPRO 100 UNITS/ML SUBCUT SCH ×4 (07:16→21:00)
[2023-08-20 08:16] VITALS: BP 160/89; PULSE 61; RESP 18; TEMP 98.2
[2023-08-20] MEDS: ASPIRIN 81MG TABLET PO SCH (09:24)
[2023-08-20] MEDS: ENOXAPARIN 80MG/0.8ML SYR SUBCUT SCH ×2 (10:30→21:40)
[2023-08-20 12:19] VITALS: BP 122/74; PULSE 58; RESP 19; TEMP 97.7
[2023-08-20 16:07] VITALS: BP 120/75; PULSE 73; RESP 20; TEMP 97.9
[2023-08-20 20:00] VITALS: BP 122/86; PULSE 70; RESP 20; TEMP 97.9
[2023-08-20] MEDS: FAMOTIDINE 20MG TABLET PO SCH (21:40)
[2023-08-20] MEDS: ATORVASTATIN CALCIUM 10MG TABLET PO SCH (21:41)
[2023-08-21] VITALS (12 sets, daily range): BP systolic 121–152; BP diastolic 78–96; PULSE 57–68; RESP 12–20; TEMP 97.1–98.8
[2023-08-21 07:21] LABS: BASOPHILS % 0.9 % (0.0-2.0); EOSINOPHILS % 1.4 % (0.0-5.0); HEMATOCRIT. 43.9 % (42.0-52.0); HEMOGLOBIN. 15.4 g/dL (14.0-18.0); LYMPHOCYTES % 36.5 % (20.0-50.0); MEAN CORPUSCULAR HEMOGLOBIN 32.5 pg (28.0-32.0); MEAN CORPUSCULAR VOLUME 92.8 fL (80.0-94.0); MEAN PLATELET VOLUME 10.4 fl (7.4-10.4); MONOCYTES % 7.4 % (2.0-8.0); NEUTROPHILS % 53.8 % (40.0-76.0); PLATELET 182 x1000/uL (130-400); RED BLOOD CELL COUNT 4.74 mill/uL (4.7-6.1); WHITE BLOOD COUNT 6.9 x1000/uL (4.5-11.0)
[2023-08-21] MEDS: BLOOD SUGAR DIAGNOSTIC STRIP TEST SCH ×4 (07:40→21:30)
[2023-08-21 08:00] LABS: CALCIUM 9.5 mg/dL (8.7-10.4); CARBON DIOXIDE 29 mEq/L (21-32); CHLORIDE 104 mEq/L (98-107); CREATININE 0.9 mg/dL (0.6-1.3); GLUCOSE 118 mg/dL (70-105); POTASSIUM 4.1 mEq/L (3.5-5.1); SODIUM 140 mEq/L (136-145); UREA NITROGEN BLOOD 8 mg/dL (9-23)
[2023-08-21] MEDS: INSULIN LISPRO 100 UNITS/ML SUBCUT SCH ×4 (08:10→21:00)
[2023-08-21] MEDS: ENOXAPARIN 80MG/0.8ML SYR SUBCUT SCH ×2 (09:00→21:00)
[2023-08-21] MEDS: ASPIRIN 81MG TABLET PO SCH (09:05)
[2023-08-21 09:57] LABS: TROPONIN I HIGH SENSITIVITY 671 ng/L (3.0-53)
[2023-08-21] MEDS: SODIUM CHLORIDE 0.45% 1,000 ML IV SCH (12:36)
[2023-08-21] MEDS: NICOTINE 7MG PATCH TD SCH (12:39)
[2023-08-21] MEDS ORDERED: LIDOCAINE HCL 1% 10 MG/ML 10ML VIAL ONE (14:39)
[2023-08-21] MEDS ORDERED: IODIXANOL 320MG/ML 100 ML BOTTLE IV ONE ×2 (14:40→15:26)
[2023-08-21] MEDS ORDERED: FENTANYL CITRATE/PF 50MCG/ML 2ML VIAL ONE (14:40)
[2023-08-21] MEDS ORDERED: MIDAZOLAM HCL 2 MG/2 ML VIAL ONE (14:40)
[2023-08-21] MEDS ORDERED: HEPARIN 1000 UNITS/ML 10ML ONE (14:40)
[2023-08-21] MEDS ORDERED: ASPIRIN 325MG TABLET ONE (15:25)
[2023-08-21] MEDS ORDERED: CLOPIDOGREL 75MG TABLET ONE (15:26)
[2023-08-21] MEDS ORDERED: ONDANSETRON HCL 4MG/2ML INJ IV PRN (16:00)
[2023-08-21] MEDS ORDERED: ACETAMINOPHEN 325MG TABLET PO PRN (16:00)
[2023-08-21] MEDS ORDERED: ATROPINE SULFATE 1MG/10ML SYR IV PRN (16:00)
[2023-08-21] MEDS: ATORVASTATIN CALCIUM 10MG TABLET PO SCH (21:35)
[2023-08-21] MEDS: METOPROLOL TARTRATE 25MG TABLET PO SCH (21:36)
[2023-08-21] MEDS: FAMOTIDINE 20MG TABLET PO SCH (21:36)
[2023-08-21] MEDS: SODIUM CHLORIDE 0.9% INJ 3ML FLUSH IVF SCH (21:37)
[2023-08-22] VITALS (10 sets, daily range): BP systolic 122–140; BP diastolic 76–96; PULSE 56–78; RESP 14–19; TEMP 97.3–99; O2SAT 98
[2023-08-22] MEDS: SODIUM CHLORIDE 0.45% 1,000 ML IV SCH ×2 (04:50→12:14)
[2023-08-22] MEDS: SODIUM CHLORIDE 0.9% INJ 3ML FLUSH IVF SCH ×2 (06:22→14:59)
[2023-08-22] MEDS: BLOOD SUGAR DIAGNOSTIC STRIP TEST SCH ×2 (06:27→12:09)
[2023-08-22 06:37] LABS: EOSINOPHILS % 1.4 % (0.0-5.0); HEMOGLOBIN. 14.9 g/dL (14.0-18.0); MEAN CORPUSCULAR HEMOGLOBIN 31.9 pg (28.0-32.0); MEAN CORPUSCULAR HGB CONC 33.8 g/dL (31.0-37.0); MEAN CORPUSCULAR VOLUME 94.3 fL (80.0-94.0); MONOCYTES % 7.3 % (2.0-8.0); NEUTROPHILS % 69.3 % (40.0-76.0); PLATELET 179 x1000/uL (130-400); RED BLOOD CELL COUNT 4.66 mill/uL (4.7-6.1); RED CELL DISTRIBUTION WIDTH 13.6 % (11.6-14.6); WHITE BLOOD COUNT 6.6 x1000/uL (4.5-11.0)
[2023-08-22 06:58] LABS: CALCIUM 9.5 mg/dL (8.7-10.4); CARBON DIOXIDE 26 mEq/L (21-32); CHLORIDE 104 mEq/L (98-107); CREATININE 0.6 mg/dL (0.6-1.3); GLUCOSE 94 mg/dL (70-105); POTASSIUM 4.2 mEq/L (3.5-5.1); SODIUM 138 mEq/L (136-145); UREA NITROGEN BLOOD 8 mg/dL (9-23)
[2023-08-22] MEDS: INSULIN LISPRO 100 UNITS/ML SUBCUT SCH ×2 (07:20→12:12)
[2023-08-22] MEDS: METOPROLOL TARTRATE 25MG TABLET PO SCH (08:41)
[2023-08-22] MEDS: NICOTINE 7MG PATCH TD SCH (08:41)
[2023-08-22] MEDS ORDERED: ASPIRIN 325MG TABLET PO SCH (09:00)
[2023-08-22] MEDS ORDERED: CLOPIDOGREL 75MG TABLET PO SCH (09:00)
[2023-08-22] MEDS: ENOXAPARIN 80MG/0.8ML SYR SUBCUT SCH (09:00)
== END 2023-08-22 15:44 | disposition home or self-care (01) | DRG 322 ==
LOC: ER 06:56 → EDBEDREQ 09:29 → EDBEDREQTM 09:29 → EDBEDREQ 09:30 → 7WST 17:03 → 3WST 08-21 16:14
PROVIDERS: ADMIT Internal Medicine; ATTEND Internal Medicine
PROC: 4A023N7 Measurement of Cardiac Sampling and Pressure, Left Heart, Percutaneous Approach (ICD-10-PCS; principal; 2023-08-21)
PROC: 027135Z Dilation of Coronary Artery, Two Arteries with Two Drug-eluting Intraluminal Devices, Percutaneous Approach (ICD-10-PCS; 2023-08-21)
PROC: B2111ZZ Fluoroscopy of Multiple Coronary Arteries using Low Osmolar Contrast (ICD-10-PCS; 2023-08-21)
PROC: B2151ZZ Fluoroscopy of Left Heart using Low Osmolar Contrast (ICD-10-PCS; 2023-08-21)
DX: I21.4 Non-ST elevation (NSTEMI) myocardial infarction (principal); I69.354 Hemiplegia and hemiparesis following cerebral infarction affecting left non-dominant side; E78.00 Pure hypercholesterolemia, unspecified; I25.110 Atherosclerotic heart disease of native coronary artery with unstable angina pectoris; E11.9 Type 2 diabetes mellitus without complications; I10 Essential (primary) hypertension; E78.1 Pure hyperglyceridemia; F17.200 Nicotine dependence, unspecified, uncomplicated; Z96.611 Presence of right artificial shoulder joint; Z96.659 Presence of unspecified artificial knee joint; Z79.02 Long term (current) use of antithrombotics/antiplatelets; Z79.82 Long term (current) use of aspirin; Z79.899 Other long term (current) drug therapy; Z79.4 Long term (current) use of insulin
CPT/HCPCS: 36415; 71045; 80048; 80053; 80061; 81003; 82962; 83036; 83880; 84484; 85025; 85347; 86850; 86900; 87426; 92928; 92929; 93005; 93306; 93458; 99285; C1725; C1769; C1874; C1887; C1893; J1644; J1650; J2250; J3010; J3490; Q9967

== ENCOUNTER → 2023-12-30 | Outpatient (CLI) | payer BC ==
[2023-12-30 06:53] LABS: BASOPHILS % 0.8 % (0.0-2.0); EOSINOPHILS % 1.6 % (0.0-5.0); HEMATOCRIT. 41.1 % (42.0-52.0); HEMOGLOBIN. 14.2 g/dL (14.0-18.0); LYMPHOCYTES % 34.5 % (20.0-50.0); MEAN CORPUSCULAR HEMOGLOBIN 31.3 pg (28.0-32.0); MEAN CORPUSCULAR HGB CONC 34.5 g/dL (31.0-37.0); MEAN CORPUSCULAR VOLUME 90.8 fL (80.0-94.0); MEAN PLATELET VOLUME 9.3 fl (7.4-10.4); MONOCYTES % 6.5 % (2.0-8.0); NEUTROPHILS % 56.6 % (40.0-76.0); PLATELET 187 x1000/uL (130-400); RED BLOOD CELL COUNT 4.53 mill/uL (4.7-6.1); RED CELL DISTRIBUTION WIDTH 14.5 % (11.6-14.6)
[2023-12-30 07:07] LABS: CARBON DIOXIDE 27 mEq/L (21-32); CHLORIDE 105 mEq/L (98-107); POTASSIUM 4.2 mEq/L (3.5-5.1); SODIUM 137 mEq/L (136-145)
[2023-12-30 07:08] LABS: CALCIUM 8.6 mg/dL (8.7-10.4)
[2023-12-30 07:12] LABS: CREATININE 0.9 mg/dL (0.6-1.3); GLUCOSE 136 mg/dL (70-105)
[2023-12-30 07:13] LABS: LDL CHOLESTEROL 96 mg/dL (5-100); TRIGLYCERIDE 199 mg/dL (0-150); UREA NITROGEN BLOOD 8 mg/dL (9-23)
[2023-12-30 07:14] LABS: ALANINE AMINOTRANSFERASE 23 IU/L (10-49); ALBUMIN 4.3 g/dL (3.2-4.8); ASPARTATE AMINOTRANSFERASE 20 IU/L (<34)
[2023-12-30 07:15] LABS: BILIRUBIN TOTAL 0.5 mg/dL (0.1-1.0); CHOLESTEROL 170 mg/dL (<200); HDL CHOLESTEROL 51 mg/dL (>55)
[2023-12-30 07:16] LABS: T4 FREE 0.88 ng/dL (0.89-1.76)
== END | disposition home or self-care (01) ==
LOC: LAB 06:25
PROVIDERS: ATTEND Specialist
DX: I10 Essential (primary) hypertension (principal); E11.9 Type 2 diabetes mellitus without complications; E78.5 Hyperlipidemia, unspecified
CPT/HCPCS: 36415; 80053; 80061; 82306; 83036; 83735; 83880; 84439; 84443; 84480; 85025

== ENCOUNTER → 2024-11-13 | Outpatient (CLI) | payer BC ==
[2024-11-13 06:19] LABS: BASOPHILS % 0.8 % (0.0-2.0); EOSINOPHILS % 1.5 % (0.0-5.0); HEMATOCRIT. 42.2 % (42.0-52.0); HEMOGLOBIN. 14.4 g/dL (14.0-18.0); LYMPHOCYTES % 35.4 % (20.0-50.0); MEAN CORPUSCULAR HEMOGLOBIN 31.5 pg (28.0-32.0); MEAN CORPUSCULAR VOLUME 92.4 fL (80.0-94.0); MEAN PLATELET VOLUME 10.1 fl (7.4-10.4); MONOCYTES % 8.9 % (2.0-8.0); NEUTROPHILS % 53.4 % (40.0-76.0); PLATELET 173 x1000/uL (130-400); RED BLOOD CELL COUNT 4.57 mill/uL (4.7-6.1); RED CELL DISTRIBUTION WIDTH 13.8 % (11.6-14.6); WHITE BLOOD COUNT 7.8 x1000/uL (4.5-11.0)
[2024-11-13 06:27] LABS: CHLORIDE 104 mEq/L (98-107); POTASSIUM 3.9 mEq/L (3.5-5.1); SODIUM 141 mEq/L (136-145)
[2024-11-13 06:30] LABS: CALCIUM 9.8 mg/dL (8.7-10.4); CARBON DIOXIDE 28 mEq/L (21-32)
[2024-11-13 06:35] LABS: CREATININE 0.9 mg/dL (0.6-1.3); GLUCOSE 145 mg/dL (70-105)
[2024-11-13 06:36] LABS: LDL CHOLESTEROL 127 mg/dL (5-100); TRIGLYCERIDE 125 mg/dL (0-150); UREA NITROGEN BLOOD 8 mg/dL (9-23)
[2024-11-13 06:37] LABS: ALANINE AMINOTRANSFERASE 29 IU/L (10-49); ALBUMIN 4.3 g/dL (3.2-4.8); ASPARTATE AMINOTRANSFERASE 23 IU/L (<34); CHOLESTEROL 220 mg/dL (<200); HDL CHOLESTEROL 66 mg/dL (>55); THYROID STIMULATING HORMONE 2.93 uIU/mL (0.55-4.78)
[2024-11-13 06:38] LABS: BILIRUBIN TOTAL 0.5 mg/dL (0.1-1.0); PROTEIN TOTAL 7.7 g/dL (6.0-8.3); T4 FREE 1.14 ng/dL (0.89-1.76)
== END | disposition home or self-care (01) ==
LOC: LAB 05:16
PROVIDERS: ATTEND Specialist
DX: R79.89 Other specified abnormal findings of blood chemistry (principal); R06.02 Shortness of breath; E78.5 Hyperlipidemia, unspecified; I25.10 Atherosclerotic heart disease of native coronary artery without angina pectoris
CPT/HCPCS: 36415; 80053; 80061; 82306; 83036; 83735; 83880; 84439; 84443; 84481; 85025